=== PATIENT | male | born 1990 | race Caucasian/White ===

== ENCOUNTER 2021-06-11 12:52 | Emergency (ER) | payer OTHER ==
[~2021-06-11] VITALS: Ht 188 cm; Wt 88.6 kg
[2021-06-11 12:58] VITALS: BP 128/57
== END 2021-06-11 14:21 | disposition home or self-care (01) ==
LOC: ER 12:53
DX: S93.402A Sprain of unspecified ligament of left ankle, initial encounter (principal); M25.572 Pain in left ankle and joints of left foot; X58.XXXA Exposure to other specified factors, initial encounter; Y93.89 Activity, other specified; Y92.89 Other specified places as the place of occurrence of the external cause; Y99.8 Other external cause status
CPT/HCPCS: 73610; 99283